=== PATIENT | male | born 1980 | race Caucasian/White ===

== ENCOUNTER 2018-02-21 20:57 | Emergency (ER) | payer MEDICAID ==
[~2018-02-21] VITALS: Ht 188 cm; Wt 108.9 kg
[2018-02-21] MEDS ORDERED: TENORMIN25 MG PO (21:51)
== END 2018-02-21 22:03 | disposition home or self-care (01) ==
LOC: ED 20:57
DX: I10 Essential (primary) hypertension (principal); J45.909 Unspecified asthma, uncomplicated; F17.200 Nicotine dependence, unspecified, uncomplicated; Z87.442 Personal history of urinary calculi
CPT/HCPCS: 99283